=== PATIENT | female | born 1950 | race Caucasian/White ===

== ENCOUNTER 2018-12-01 14:55 | Day surgery (SDC) | payer BC ==
[2018-12-01] VITALS (9 sets, daily range): BP systolic 93–138; BP diastolic 56–82; PULSE 56–61; RESP 16–19; Ht 160 cm; Wt 60.3 kg
[~2018-12-01] VITALS: Ht 160 cm; Wt 60.3 kg
[2018-12-01] MEDS ORDERED: CEFAZOLIN 1 GM INJ ONE (15:17)
[2018-12-01] MEDS ORDERED: LIDOCAINE 4% (MPF) 5 ML INJ ONE (15:17)
[2018-12-01] MEDS ORDERED: EPINEPHrine 1 MG INJ ONE (15:18)
[2018-12-01] MEDS ORDERED: GENTAMICIN 80 MG INJ ONE (15:18)
[2018-12-01] MEDS ORDERED: TETRACAINE 0.5% 4 ML OPH ONE (15:18)
[2018-12-01] MEDS ORDERED: DEXAMETHASONE 4 MG/ML 1 ML INJ ONE (15:18)
[2018-12-01] MEDS ORDERED: CARBACHOL 0.01% 1.5 ML OPH INJ ONE ×2 (15:18→16:11)
[2018-12-01] MEDS ORDERED: NA HYALURONATE/CHONDROITIN 0.5 ML SYG ONE (15:18)
[2018-12-01] MEDS ORDERED: DICLOFENAC 0.1% 2.5 ML OPH OPER SCH (15:30)
[2018-12-01] MEDS ORDERED: SOD CHLORIDE 0.9% 1,000 ML IV SCH (15:30)
[2018-12-01] MEDS ORDERED: TROPICAMIDE 1% 15 ML OPH OPER SCH (15:30)
[2018-12-01] MEDS ORDERED: CYCLOPENTOLATE/PHENYLEPH 2 ML OPH OPER SCH (15:30)
[2018-12-01] MEDS ORDERED: MOXIFLOXACIN 0.5% 3 ML OPH OPER SCH (15:30)
--- NOTE | 2018-12-01 15:34 | PREAC ---
Date/Time of Note Date/Time of Note DATE: 12/01/18 TIME: 15:32 Anesthesia Eval and Record Evaluation Time Pre-Procedure Interview DATE: 12/01/18 TIME: 15:32 Age 67 Sex female NPO: 8 hrs Preoperative diagnosis Right Eye Cataract and angle closure Glaucoma Planned procedure Right Cataract Extraction and IOL implant Past Medical History Past Medical History: None Surgery & Anesthesia Issues No known issue Meds Anticoagulation: No Beta [place] within 24 hr: No Reason Beta [place] not given: Pt. not on B-[place] Current Medications Diclofenac Sodium (Voltaren 0.1%) 1 drop Q5 MIN X 3 OPER Last administered on 12/01/18at 15:31; Admin Dose 1 DROP; Start 12/01/18 at 15:30; Stop 12/01/18 at 23:00 Tropicamide (Mydriacyl 1%) 1 drop Q5 MIN X3 OPER Last administered on 12/01/18at 15:31; Admin Dose 1 DROP; Start 12/01/18 at 15:30; Stop 12/01/18 at 23:00 Moxifloxacin HCl (Vigamox) 1 drop Q5 MIN X 3 OPER Last administered on 12/01/18at 15:31; Admin Dose 1 DROP; Start 12/01/18 at 15:30; Stop 12/01/18 at 23:00 Cyclopentolate/ Phenylephrine (Cyclomydril Oph 2 ml) 1 drop Q5 MIN X 3 OPER Last administered on 12/01/18at 15:31; Admin Dose 1 DROP; Start 12/01/18 at 15:30; Stop 12/01/18 at 23:00 Sodium Chloride 1,000 ml @ 25 mls/hr Q24H IV ; Start 12/01/18 at 15:30; Stop 12/01/18 at 23:00 Meds reviewed: Yes Allergies Coded Allergies: Penicillins (Verified Allergy, Unknown, 12/01/18) Sulfa (Sulfonamide Antibiotics) (Verified Allergy, Unknown, 12/01/18) Allergies Reviewed: Yes Labs/Studies Labs Reviewed: Reviewed by anesthesiologist test: N/A Studies: ECG (n/a), CXR (n/a) Pre-procedure Exam Airway: Adequate mouth opening, Adequate thyromental dist Mallampati: Mallampati II Teeth: Normal Lung: Normal Heart: Normal ASA Physical Status ASA physical status: 2 Emergency: E Planned Anesthetic General/MAC: MAC Planned Pain Management Parenteral pain med Pre-operative Attestations Prior to commencing anesthesia and surgery, the patient was re-evaluated, there was verification of: *The patient's identity *The results of appropriate recent lab work and preoperative vital signs *The above evaluation not changing prior to induction *Anesthetic plan, risk benefits, alternative and complications discussed with patient/family; questions answered; patient/family understands, accepts and wishes to proceed. JOLLY ALEXIS MD Dec 01, 2018 15:34
[2018-12-01] MEDS ORDERED: MIDAZOLAM 1 MG/ML 2 ML INJ ONE (15:58)
[2018-12-01] MEDS ORDERED: FENTAnyl 50 MCG/ML VIAL ONE (15:58)
[2018-12-01] MEDS ORDERED: OXYCODONE/ACETAMINOPHEN (5/325) TAB PO PRN (16:00)
[2018-12-01] MEDS ORDERED: HYDROmorphONE 1 MG/5 ML IV SYRINGE IV PRN (16:00)
[2018-12-01] MEDS ORDERED: FENTAnyl 50 MCG/ML VIAL IV PRN (16:00)
[2018-12-01] MEDS ORDERED: ONDANSETRON 4 MG INJ IV PRN (16:00)
--- NOTE | 2018-12-01 16:07 | PREOPHP ---
DATE OF ADMISSION: 12/01/2018 HISTORY OF PRESENT ILLNESS: This 67-year-old patient is admitted for emergent cataract surgery of th e left eye. The patient has a 1-day history of acute pain in the left eye, unrelieved by topical med ication or oral Diamox. 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 The pat ient also has a history of central retinal vein occlusion in the right eye which has been treated by retina vitreous surgeon with intravitreal injections. The patient has also had laser peripheral irid otomy done prophylactically on the right eye. Despite the above, the patient has developed an acute pupillary block glaucoma which is not responding to conservative therapy. CURRENT MEDICATIONS: The patient is currently not on any medications. ALLERGIES: 1. PENICILLIN. 2. SULFACETAMIDE. PHYSICAL EXAMINATION: The visual acuity with correction is 20/100 in the right eye and 20/50 in the left eye. Slit lamp examination reveals a fixed, dilated pupil in the right eye and a 3 mm in the le ft eye which is reactive to light. The conjunctiva appears hyperemic in the right eye. There is sherly dence of laser peripheral iridotomy in both eyes. Examination of the lens reveals moderate nuclear s clerosis and the lens appears to be displaced anteriorly in the right eye. Applanation tonometry is 55 mmHg in the right eye and 15 mmHg in the left eye. DIAGNOSES: 1. Acute pupil block glaucoma, right eye. 2. History retinal vein occlusion, right eye. 3. History of acute narrow angle glaucoma, left eye. PLAN: This patient requires cataract surgery to relieve her intraocular pressure. The patient's vis ual prognosis in the right eye is guarded due to the extremely high intraocular pressure in that eye for the past 24 hours as well as a history of central retinal vein occlusion. The patient understand s this and agrees to proceed with surgery. Dictated By: FIDEL PLATA/SHANAE Conf#: [id number] DID#: [id number]
[2018-12-01] MEDS ORDERED: LIDOCAINE 1% (MPF) 10 ML INJ ONE (16:10)
[2018-12-01] MEDS ORDERED: METOCLOPRAMIDE 10 MG INJ ONE (16:12)
[2018-12-01] MEDS ORDERED: ONDANSETRON 4 MG INJ ONE (16:12)
[2018-12-01] MEDS ORDERED: PROPOFOL 20 ML ONE (16:12)
--- NOTE | 2018-12-01 16:56 | SIPON ---
Date/Time of Note Date/Time of Note DATE: 12/01/18 TIME: 16:55 Operative Report Preoperative Diagnosis Acute Pupil block glaucoma od Postoperative Diagnosis same Operation/Procedure Performed cataract extraction with lens implant od Surgeon fidel bob aquatics assistant department head none Anesthesia: MAC Estimated blood loss: none Transfusion Required none Specimen none Grafts/Implants posterior chamber lens implant Complications none FIDEL BOB MD Dec 01, 2018 16:56
--- NOTE | 2018-12-01 16:59 | PAC ---
Date/Time of Note Date/Time of Note DATE: 12/01/18 TIME: 16:59 Post-Anesthesia Notes Post-Anesthesia Note Last documented vital signs Vital Signs Date Temp Pulse Resp B/P (MAP) Pulse Ox O2 O2 Flow FiO2 Time Delivery Rate 12/01/18 98.9 61 16 138/82 97 Room Air 16:54 (100) Activity: WNL Respiratory function: WNL Cardiovascular function: WNL Mental status: Baseline Pain reasonably controlled: Yes Hydration appropriate: Yes Nausea/Vomiting absent: Yes JOLLY ALEXIS MD Dec 01, 2018 16:59
--- NOTE | 2018-12-01 17:33 | OPR ---
DATE OF OPERATION: 12/01/2018 PREOPERATIVE DIAGNOSIS: Acute pupil block glaucoma, right eye. POSTOPERATIVE DIAGNOSIS: Acute pupil block glaucoma, right eye. OPERATION PERFORMED: Cataract extraction with lens implant, right eye. SURGEON: Fidel Yanes MD. ANESTHESIA: Dr. Tyson. DESCRIPTION OF PROCEDURE: The patient was brought to the operating room on an eye gurney, positioned appropriately, attached to electrocardiogram monitor, oxygen saturation monitor, and cardiac leads. The patient received oxygen via nasal cannula. The patient was then given some intravenous sedation and then received local anesthesia using lidocaine 4% given in lid block and retrobulbar injection. The patient was then prepped and draped in the usual sterile manner and a speculum was inserted betw een the lids of the right eye. The patient's corneal stroma was noted to be edematous, somewhat obsc uring details inside the eye. However, the surgery proceeded by creating 2 paracentesis incisions at the 2 and 10 o'clock position using a Superblade. Using a 2 mm keratome, the anterior chamber was t hen entered with its primary incision through the superior limbus in a stepped incision. Through thi s opening, the anterior chamber was filled with Viscoat and then a capsulorrhexis was performed. Hyd rodissection was then done around the lens nucleus. Phacoemulsification was then undertaken using a divide and conquer method, segments of the lens nucleus and emulsifying them. After this had been completed, epinucleus nuclear material was aspirated from the posterior chamber and then the lens cortical material was removed using irrigation aspiration method and a 2-handed technique was e mployed. Following this, the anterior chamber was filled with Provisc and then the lips of the prima ry wound were enlarged slightly and then a posterior chamber intraocular lens measuring 23.0 diopters (Bausch and Lomb Model LI61AO) was inserted into the posterior chamber with the haptics tucked in th e capsular fold. The lens was rotated so the haptics were arrayed in the horizontal meridian. One 1 0-0 nylon suture was then placed across the wound and prior to tying, the Provisc was aspirated out o f the anterior chamber. The suture was then tied, the ends were cut short, and the knot was buried o n the scleral side. Miostat was instilled into the anterior chamber to partially constrict the pupil . It was noted that in the superotemporal quadrant, the pupil did not react by constricting indicati ng some damage to the pupillary sphincter muscle during the acute attack of glaucoma. At the end of the procedure, 0.5 mL of gentamicin and 0.5 mL of dexamethasone were injected into the sub-tenon spac e in the inferior conjunctival fornix. The speculum was removed. Vigamox drops placed on the surfac e of the eye and the eye was then patched. The patient left the operating room in satisfactory condi tion. Dictated By: FIDEL PLATA/SHANAE Conf#: [id number] DID#: [id number]
== END 2018-12-01 18:06 | disposition home or self-care (01) ==
LOC: SDS 14:55
PROVIDERS: ATTEND Ophthalmology
DX: H40.51X0 Glaucoma secondary to other eye disorders, right eye, stage unspecified (principal)
CPT/HCPCS: 66984; J0171; J0690; J1100; J1580; J2250; J2405; J2765; J3010; V2632

== ENCOUNTER 2019-01-19 06:12 | Day surgery (SDC) | payer BC ==
--- NOTE | 2019-01-18 13:19 | PREOPHP ---
DATE OF ADMISSION: 01/19/2019 HISTORY OF PRESENT ILLNESS: This 68-year-old patient is admitted for elective cataract surgery of th e left eye. This patient has previously been a hyperope and due to the small size of the globe, this precipitated an angle closure glaucoma attack in the left eye. This was treated with multiple perip heral iridotomies. The patient subsequently had a central retinal vein occlusion in the left eye whi ch was treated with intravitreal eylea injections in order to have resolution of macular edema and th e neovascular changes. This was successfully completed. The patient subsequently had peripheral iri dotomy performed in the right eye and then because of the appearance of the anterior chamber angle, a nd concern about an acute attack in that eye, cataract surgery was performed. This was done 1-1/2 mo nths ago with good visual outcome. The patient's systemic history is no evidence of prior systemic i llnesses. The patient is currently not on any medication. ALLERGIES: The patient does have A HISTORY OF ALLERGY TO: 1. PENICILLIN. 2. SULFACETAMIDE. PHYSICAL EXAMINATION: The visual acuity with correction is 20/50 in the right eye and 20/40 in the left eye. Slit lamp examination reveals a posterior chamber intraocular lens in appropriate position in the right eye. The left eye has evidence of a nuclear sclerotic cataract. Both eyes have eviden ce of bilateral peripheral iridotomies. Examination of the retina reveals normal appearing optic dis k, without any significant cupping damage. The examination of the macula area shows resolution of th e macula edema in the right eye. DIAGNOSES: 1. Cataract, left eye. 2. History of acute angle closure glaucoma. PLAN: Cataract extraction with lens implant, left eye. The risks and alternatives to the surgery falk ve been discussed with the patient as well as the hope for resolution of any chance of having an acut e attack of glaucoma in the left eye. The patient also desires to have some improvement of visual ac uity in that eye, leading to greater ability to perform activities of daily living. The patient cons ented to undergo the procedure. Dictated By: FIDEL PLATA/SHANAE Conf#: [id number] DID#: [id number]
[~2019-01-19] VITALS: Ht 157.5 cm; Wt 61.2 kg
[2019-01-19] VITALS (8 sets, daily range): BP systolic 132–174; BP diastolic 74–93; PULSE 56–66; RESP 15–26; Ht 157.5 cm; Wt 61.2 kg
[~2019-01-19 06:12] MED LIST: CYCLOPENTOLATE/PHENYLEPH 2 ML OPH LEFT EYE SCH; DICLOFENAC 0.1% 2.5 ML OPH LEFT EYE SCH; MOXIFLOXACIN 0.5% 3 ML OPH LEFT EYE SCH; SOD CHLORIDE 0.9% 1,000 ML IV SCH; TROPICAMIDE 1% 15 ML OPH LEFT EYE SCH
[2019-01-19] MEDS ORDERED: LIDOCAINE 4% (MPF) 5 ML INJ ONE (08:30)
[2019-01-19] MEDS ORDERED: DEXAMETHASONE 4 MG/ML 1 ML INJ ONE (08:30)
[2019-01-19] MEDS ORDERED: NA HYALURONATE/CHONDROITIN 0.5 ML SYG ONE (08:30)
[2019-01-19] MEDS ORDERED: CEFAZOLIN 1 GM INJ ONE (08:30)
[2019-01-19] MEDS ORDERED: CARBACHOL 0.01% 1.5 ML OPH INJ ONE (08:30)
[2019-01-19] MEDS ORDERED: EPINEPHrine 1 MG INJ ONE (08:30)
[2019-01-19] MEDS ORDERED: GENTAMICIN 80 MG INJ ONE (08:30)
[2019-01-19] MEDS ORDERED: TETRACAINE 0.5% 4 ML OPH ONE (08:30)
--- NOTE | 2019-01-19 08:45 | PREAC ---
Date/Time of Note Date/Time of Note DATE: 01/19/19 TIME: 08:45 Anesthesia Eval and Record Evaluation Time Pre-Procedure Interview DATE: 01/19/19 TIME: 08:45 Age 68 Sex female NPO: 8 hrs Preoperative diagnosis cataract Planned procedure extraction Past Medical History Past Medical History: None Surgery & Anesthesia Issues No known issue Meds Anticoagulation: No Beta [place] within 24 hr: No Reason Beta [place] not given: Pt. not on B-[place] No Active Prescriptions or Reported Meds Current Medications Diclofenac Sodium (Voltaren 0.1%) 1 drop Q5 MIN X 3 LEFT EYE Last administered on 01/19/19at 07:14; Admin Dose 1 DROP; Start 01/19/19 at 06:00 Tropicamide (Mydriacyl 1%) 1 drop Q5 MIN X3 LEFT EYE Last administered on 01/19/19at 07:13; Admin Dose 1 DROP; Start 01/19/19 at 06:00 Moxifloxacin HCl (Vigamox) 1 drop Q5 MIN X 3 LEFT EYE Last administered on 01/19/19at 07:14; Admin Dose 1 DROP; Start 01/19/19 at 06:00 Cyclopentolate/ Phenylephrine (Cyclomydril Oph 2 ml) 1 drop Q5 MIN X 3 LEFT EYE Last administered on 01/19/19at 07:23; Admin Dose 1 DROP; Start 01/19/19 at 06:00 Sodium Chloride 1,000 ml @ 25 mls/hr Q24H IV Last administered on 01/19/19at 07:12; Admin Dose 25 MLS/HR; Start 01/19/19 at 06:00 Meds reviewed: Yes Allergies Coded Allergies: Penicillins (Verified Allergy, Unknown, 01/19/19) Sulfa (Sulfonamide Antibiotics) (Verified Allergy, Unknown, 01/19/19) Allergies Reviewed: Yes Labs/Studies Labs Reviewed: Reviewed by anesthesiologist test: N/A Pre-procedure Exam Last vitals Vital Signs Date Temp Pulse Resp B/P (MAP) Pulse Ox O2 O2 Flow FiO2 Time Delivery Rate 01/19/19 98.6 60 16 133/74 99 07:29 (93) Airway: Adequate mouth opening, Adequate thyromental dist Mallampati: Mallampati III Teeth: Normal Lung: Normal Heart: Normal ASA Physical Status ASA physical status: 1 Emergency: None Pre-operative Attestations Prior to commencing anesthesia and surgery, the patient was re-evaluated, there was verification of: *The patient's identity *The results of appropriate recent lab work and preoperative vital signs *The above evaluation not changing prior to induction *Anesthetic plan, risk benefits, alternative and complications discussed with patient/family; questions answered; patient/family understands, accepts and wishes to proceed. LINDA RUCKER DO Jan 19, 2019 08:45
[2019-01-19] MEDS ORDERED: ETOMIDATE 20 MG INJ ONE (08:48)
[2019-01-19] MEDS ORDERED: LIDOCAINE 2% (SDV) 5 ML INJ ONE (09:22)
[2019-01-19] MEDS ORDERED: PROPOFOL 20 ML ONE (09:22)
--- NOTE | 2019-01-19 09:28 | SIPON ---
Date/Time of Note Date/Time of Note DATE: 01/19/19 TIME: 09:27 Operative Report Preoperative Diagnosis nuclear sclerotic cataract os Postoperative Diagnosis same Operation/Procedure Performed cataract extraction with lens implant os Surgeon fidel bob clerical dentist assistant none Anesthesia: MAC Estimated blood loss: none Transfusion Required none Specimen none Grafts/Implants posterior chamber lens implant Complications none FIDEL BOB MD Jan 19, 2019 09:28
--- NOTE | 2019-01-19 09:33 | PAC ---
Date/Time of Note Date/Time of Note DATE: 01/19/19 TIME: 09:33 Post-Anesthesia Notes Post-Anesthesia Note Last documented vital signs Vital Signs Date Temp Pulse Resp B/P (MAP) Pulse Ox O2 O2 Flow FiO2 Time Delivery Rate 01/19/19 98.6 60 16 133/74 99 07:29 (93) Activity: WNL Respiratory function: WNL Cardiovascular function: WNL Mental status: Baseline Pain reasonably controlled: Yes Hydration appropriate: Yes Nausea/Vomiting absent: Yes LINDA RUCKER DO Jan 19, 2019 09:33
[2019-01-19] MEDS ORDERED: HYDROmorphONE 1 MG/5 ML IV SYRINGE IV ONE (09:37)
[2019-01-19] MEDS ORDERED: ONDANSETRON 4 MG INJ IV PRN (10:00)
[2019-01-19] MEDS ORDERED: HYDROmorphONE 1 MG/5 ML IV SYRINGE IV PRN ×3 (10:00)
--- NOTE | 2019-01-19 14:51 | OPR ---
DATE OF OPERATION: 01/19/2019 PREOPERATIVE DIAGNOSES: Nuclear sclerotic cataract and history of angle closure glaucoma, left eye. POSTOPERATIVE DIAGNOSES: Nuclear sclerotic cataract and history of angle closure glaucoma, left eye. OPERATION PERFORMED: Cataract extraction with lens implant, left eye. SURGEON: Fidel Yanes MD ANESTHESIA: Ron Dailey DO DESCRIPTION OF OPERATION: The patient was brought to the operating room and placed on the table with an IV in place and the patient attached to an teacher physically impaired. Oxygen was given via face mask. After some intravenous sedation was administered, local anesthesia was given using Xylocaine 2% with epinephrine, mixed with Marcaine 0.5%. This was given in a lid block and retrobulbar injection. The p atient was then prepped and draped in the usual sterile manner. A wire lid speculum was inserted between the lids of the left eye. A Superblade was used to enter the anterior chamber at the corneoscleral limbus at the 10:30 o'clock position. A separate incision was made using a 3.0-mm keratome which entered the corneoscleral junction at the 12 o'clock position. Thr ough this 3-mm opening, an irrigating cystotome was introduced into the anterior chamber. The chamber was filled with Viscoat and an anterior capsulotomy was performed. Balanced salt solution was then u sed for hydrodissection of the lens. A phacoemulsification handpiece was then brought into the field and introduced into the anterior chamber. The lens nucleus was emulsified using a deep groove and cr acking the nucleus into quadrants. Following this, each quadrant was aspirated and emulsified at the pupillary margin. After this was completed, the irrigation/aspiration handpiece was brought to the field, introduced in to the posterior chamber, and the lens cortical material was removed. When this was completed, additi onal Viscoat was injected into the anterior and posterior chambers. The 3-mm opening had its internal lips enlarged, and then the posterior chamber intraocular lens hillary uring 27.0 diopters ([employer]aus[employer] model LI61AO) was then injected into the posterior c hamber using the lens injector system. After the leading haptic was introduced into the capsular bag and the lens optic was present in the center of the eye, the injector was removed and the trailing falk ptic was grasped with non-toothed forceps and introduced into the capsular fold superiorly. A Sinskey hook was then used to rotate the intraocular lens so that the lips were oriented in the horizontal m eridian. One 10-0 nylon suture was placed across the wound. Prior to tying, the irrigation/aspiration handpiece was reintroduced into the anterior chamber to rem ove the Viscoat. Miochol was instilled to constrict the pupil, and then the 10-0 nylon suture was tie d. The ends were cut short and then the knot was buried. Then, 0.5 mL of dexamethasone and 0.5 mL of Ancef were injected into the sub-Tenon space in the infer ior fornix. Ciloxan drops were then placed on the surface of the eye. The speculum was removed and a patch was applied. The patient then left the operating room in satisfactory condition. Dictated By: FIDEL PLATA/SHANAE Conf#: [id number] DID#: [id number]
== END 2019-01-19 10:24 | disposition home or self-care (01) ==
LOC: SDS 06:12
PROVIDERS: ATTEND Ophthalmology
DX: H25.12 Age-related nuclear cataract, left eye (principal)
CPT/HCPCS: 66984; J0171; J1100; J1170; J1580; J7030; V2632; J0690